=== PATIENT | female | born 1940 | race Caucasian/White ===

== ENCOUNTER 2017-03-30 13:16 | Emergency (ER) | payer MEDICAID, OTHER ==
[~2017-03-30] VITALS: Ht 157.5 cm; Wt 77.1 kg
[2017-03-30] MEDS ORDERED: SODIUM CHLORIDE 0.9% 500 ML IVB ONE (13:52)
[2017-03-30] MEDS ORDERED: MORPHINE SULFATE 4 MG/ML SYRG IV ONE (14:00)
[2017-03-30 14:45] LABS: Basophils # (auto) 0 uL; Basophils % (auto) 0.3 % (0.0-2.0); Eosinophils # (auto) 0.1 uL; Eosinophils % (auto) 0.8 % (0.0-7.0); Hematocrit 32.4 % (36.0-46.0); Hemoglobin 10.8 g/dL (12.2-16.2); Lymphocytes # (auto) 0.9 uL; Lymphocytes % (auto) 10.3 % (10.0-50.0); Mean Corpuscular Hemoglobin 29.8 pg (28.0-32.0); Mean Corpuscular Hgb Conc. 33.3 g/dL (32.0-36.0); Mean Corpuscular Volume 89.7 fL (80.0-100.0); Mean Platelet Volume 8.5 fL (7.4-10.4); Monocytes # (auto) 0.5 uL; Monocytes % (auto) 5.1 % (0.0-12.0); Neutrophils # (auto) 7.3 uL; Neutrophils % (auto) 83.5 % (37.0-80.0); Platelet Count (auto) 313 10^3/uL (140-450); Red Cell Distribution Width 16.3 % (11.6-16.0); White Blood Cell 8.8 10^3/uL (4.4-10.8)
[2017-03-30 14:49] LABS: Albumin 3.5 g/dL (3.4-5.0); BUN/Creatinine Ratio 15.4; Bilirubin, Total 0.3 mg/dL (0.2-1.0); Calcium 8.8 mg/dL (8.5-10.1); Magnesium 2.6 mg/dL (1.6-2.6); Potassium 3.9 mmol/L (3.5-5.1); Total Protein 7.5 g/dL (6.4-8.2)
[2017-03-30] MEDS: ONDANSETRON HCL 4 MG/2 ML VIAL IV ONE ×2 (16:50→16:56)
[2017-03-30 18:06] LABS: Urine Bilirubin Negative (Negative); Urine Blood 1+ /uL (Negative); Urine Color Yellow (Yellow); Urine Glucose Normal (Normal); Urine Ketone Negative (Negative); Urine Nitrite Negative (Negative); Urine RBC 2 /hpf (0 - 4); Urine Squamous Epithelial Cell FEW /hpf (<5); Urine Urobilinogen Normal (Negative)
[2017-03-30 19:14] VITALS: BP 120/79
== END 2017-03-30 19:25 | disposition home or self-care (01) ==
LOC: EDBD 13:16 → ER 13:22
DX: R10.31 Right lower quadrant pain (principal); R19.7 Diarrhea, unspecified; J44.9 Chronic obstructive pulmonary disease, unspecified; M10.9 Gout, unspecified; I12.9 Hypertensive chronic kidney disease with stage 1 through stage 4 chronic kidney disease, or unspecified chronic kidney disease; N18.9 Chronic kidney disease, unspecified; I25.2 Old myocardial infarction; Z90.49 Acquired absence of other specified parts of digestive tract; Z98.51 Tubal ligation status; F17.210 Nicotine dependence, cigarettes, uncomplicated
CPT/HCPCS: 36415; 74176; 80053; 81001; 82150; 83690; 83735; 85025; 94761; 96360

== ENCOUNTER 2018-04-15 05:46 | Emergency (ER) | payer OTHER ==
[~2018-04-15] VITALS: Ht 157.5 cm; Wt 77.1 kg
[2018-04-15 06:15] VITALS: BP 128/64
== END 2018-04-15 07:43 | disposition home or self-care (01) ==
LOC: ER 05:48
DX: H10.33 Unspecified acute conjunctivitis, bilateral (principal); J44.9 Chronic obstructive pulmonary disease, unspecified; I12.9 Hypertensive chronic kidney disease with stage 1 through stage 4 chronic kidney disease, or unspecified chronic kidney disease; N18.9 Chronic kidney disease, unspecified; I10 Essential (primary) hypertension; I25.2 Old myocardial infarction; Z90.49 Acquired absence of other specified parts of digestive tract; Z98.51 Tubal ligation status

== ENCOUNTER 2018-11-04 12:43 | Emergency (ER) | payer OTHER ==
[~2018-11-04] VITALS: Ht 157.5 cm; Wt 89.4 kg
[2018-11-04 15:47] VITALS: BP 118/66
== END 2018-11-04 17:43 | disposition home or self-care (01) ==
LOC: ER 12:47
DX: S86.911A Strain of unspecified muscle(s) and tendon(s) at lower leg level, right leg, initial encounter (principal); I13.0 Hypertensive heart and chronic kidney disease with heart failure and stage 1 through stage 4 chronic kidney disease, or unspecified chronic kidney disease; N18.9 Chronic kidney disease, unspecified; I50.9 Heart failure, unspecified; J44.9 Chronic obstructive pulmonary disease, unspecified; I25.2 Old myocardial infarction; Z90.49 Acquired absence of other specified parts of digestive tract; Z98.51 Tubal ligation status; Z88.6 Allergy status to analgesic agent; X58.XXXA Exposure to other specified factors, initial encounter; Y93.89 Activity, other specified; Y92.89 Other specified places as the place of occurrence of the external cause; Y99.8 Other external cause status
CPT/HCPCS: 93971

== ENCOUNTER 2020-08-11 13:41 | Emergency (ER) | payer OTHER ==
[~2020-08-11] VITALS: Ht 157.5 cm; Wt 77.1 kg
[2020-08-11 13:58] VITALS: BP 152/81
== END 2020-08-11 15:49 | disposition home or self-care (01) ==
LOC: ER 13:41
DX: S51.811A Laceration without foreign body of right forearm, initial encounter (principal); I12.9 Hypertensive chronic kidney disease with stage 1 through stage 4 chronic kidney disease, or unspecified chronic kidney disease; N18.9 Chronic kidney disease, unspecified; J44.9 Chronic obstructive pulmonary disease, unspecified; Z88.5 Allergy status to narcotic agent; W22.8XXA Striking against or struck by other objects, initial encounter; Y93.89 Activity, other specified; Y92.89 Other specified places as the place of occurrence of the external cause; Y99.8 Other external cause status

== ENCOUNTER 2023-07-22 16:22 | Emergency (ER) | payer OTHER ==
[~2023-07-22] VITALS: Ht 170.2 cm; Wt 90.1 kg
[2023-07-23 02:45] VITALS: TEMP 98.8
[2023-07-23 02:59] VITALS: PULSE 89; RESP 22; O2SAT 93
[2023-07-23 04:45] VITALS: BP 100/55; PULSE 79; RESP 21; O2SAT 94
== END 2023-07-23 04:52 | disposition home or self-care (01) ==
LOC: ER 16:22 → EDBD 16:22 → ER 07-23 04:45
DX: S51.812A Laceration without foreign body of left forearm, initial encounter (principal); M79.10 Myalgia, unspecified site; M54.50 Low back pain, unspecified; I12.9 Hypertensive chronic kidney disease with stage 1 through stage 4 chronic kidney disease, or unspecified chronic kidney disease; N18.9 Chronic kidney disease, unspecified; J44.9 Chronic obstructive pulmonary disease, unspecified; I25.2 Old myocardial infarction; M10.9 Gout, unspecified; Z90.49 Acquired absence of other specified parts of digestive tract; Z88.5 Allergy status to narcotic agent; W01.0XXA Fall on same level from slipping, tripping and stumbling without subsequent striking against object, initial encounter; Y93.89 Activity, other specified; Y92.89 Other specified places as the place of occurrence of the external cause; Y99.8 Other external cause status
CPT/HCPCS: 72100

== ENCOUNTER 2023-07-28 11:45 | Emergency (ER) | payer OTHER ==
[~2023-07-28] VITALS: Ht 157.5 cm; Wt 72.7 kg
[2023-07-28 11:45] VITALS: BP 122/77; PULSE 110; RESP 18; TEMP 97.1; O2SAT 97
[2023-07-28] MEDS ORDERED: BACIOIN15 TOP (16:32)
== END 2023-07-28 16:58 | disposition home or self-care (01) ==
LOC: ER 11:45
DX: S51.812A Laceration without foreign body of left forearm, initial encounter (principal); I12.9 Hypertensive chronic kidney disease with stage 1 through stage 4 chronic kidney disease, or unspecified chronic kidney disease; N18.9 Chronic kidney disease, unspecified; J44.9 Chronic obstructive pulmonary disease, unspecified; Z90.49 Acquired absence of other specified parts of digestive tract; Z88.6 Allergy status to analgesic agent; Z98.51 Tubal ligation status; X58.XXXA Exposure to other specified factors, initial encounter; Y93.89 Activity, other specified; Y92.89 Other specified places as the place of occurrence of the external cause; Y99.8 Other external cause status
CPT/HCPCS: 12004